=== PATIENT | male | born 1970 | race Caucasian/White ===

== ENCOUNTER 2024-11-08 21:26 | Emergency (ER) | payer BC, SELFPAY ==
[2024-11-08 21:30] VITALS: BP 155/84
[2024-11-08 21:55] LABS: Hematocrit 43.5 % (39.0-52.0); Hemoglobin 14.4 g/dL (13.0-18.0); Mean Corp Hgb Conc. 33.1 g/dL (33.0-37.0); Mean Corpuscular Volume 89.0 fL (80.0-94.0); Nucleated Red Blood Cells % 0 % (-); Platelet Count 260 10^3/uL (130-400); Red Cell Dist. Width 12.8 % (11.5-14.5)
[2024-11-08 22:13] LABS: ALT (SGPT) 64 U/L (0-50); AST (SGOT) 37 U/L (17-59); Albumin 4.6 g/dl (3.5-5.0); Alkaline Phosphatase 54 U/L (38-126); Blood Urea Nitrogen 24 mg/dl (9-20); Calcium 9.1 mg/dl (8.4-10.2); Carbon Dioxide 27 mmol/L (22-30); Chloride 104 mmol/L (98-107); Glucose 122 mg/dl (70-99); Potassium 4.8 mmol/L (3.5-5.1); Sodium 138 mmol/L (135-145); Total Protein 7.7 g/dl (6.3-8.2); eGFR > 60.00
[2024-11-08 22:18] LABS: Troponin I < 0.012 ng/ml
[2024-11-08 22:24] VITALS: BP 110/70
[2024-11-08 23:00] VITALS: BP 113/68
[2024-11-09] VITALS: BP 112/67
--- NOTE | 2024-11-09 00:14 | ED.GENMED ---
History of Present Illness
<Abdirahman Henning MD, Resident - Last Filed: 11/09/24 11:01>
General
Chief Complaint: Dizziness
Source: patient
Exam Limitations: none
Time Seen by Provider: 11/08/24 23:59
History of Present Illness
History of Present Illness:
This is a 54-year-old male with history of GERD presenting in the emergency department with complaints of ' white noise' in both ears and intermittent feeling of lightheadedness. Reports that he recently returned from [place] on October 29 he developed
some respiratory symptoms in our lab when he came to [facility] he went to the urgent care and was prescribed a Medrol Dosepak and Augmentin for 10 days. He completed the Medrol Dosepak however his symptoms are still lingering so he consulted
his family doctor who prescribed another Medrol Dosepak which she is currently on third day. He finished a course of antibiotics. He denies any fevers or chills. Denies any nausea or vomiting. Denies any diarrhea or constipation. He reports
that his respiratory symptoms almost resolved completely.
He reported that before leaving for a line he had a blood work which showed slight elevation of TSH but he was never started on any medications.
Past History
<Abdirahman Henning MD, Resident - Last Filed: 11/09/24 11:01>
Past History
ED Past Medical History: GERD and Other (Duodenal ulcer, gastritis); Negative Asthma, HTN, Hypercholesterolemia or NIDDM
ED Past Surgical History: None
Social History
Tobacco: Non-smoker
Alcohol: None
Drug: None
Personal:
Living: with family
Employment: Employed
Family History
Family History: Other (Noncontributory)
Review of Systems
<Abdirahman Henning MD, Resident - Last Filed: 11/09/24 11:01>
Review of Systems
Allergies reviewed?: Yes
Constitutional: Denies fever or chills
EENT: Reports other (White noise in both ears); Denies sore throat
Respiratory: Denies cough
Cardiac: Denies chest pain or diaphoresis
ABD/GI: Denies abdominal pain, nausea or vomiting
: Denies dysuria
Musculoskeletal: Denies joint pain
Skin: Denies itching
Neurological: Reports dizzy; Denies headache, weakness or numbness
Hematologic/Lymphatic: Denies bleeding
Psychiatric: Denies depression
Phy Exam
<Abdirahman Henning MD, Resident - Last Filed: 11/09/24 11:01>
General Physical Exam
General Presentation: well appearing and no apparent distress
General age: appears stated age
General Skin: warm
General Habitus: normal
General Mental: alert
General Hydration: appears well hydrated
Cardiovascular Exam
Cardiovascular Exam: regular rate/rhythm and no murmur
Pulmonary Exam
Pulmonary Exam: lungs clear, no respiratory distress and no cough
Gastrointestinal Exam
Gastrointestinal Exam: normal bowel sounds, non tender, soft and non distended
Neurological Exam
Neurological Exam: alert, oriented x3, CN II-XII intact, no motor deficits, no sensory deficits and cerebellum intact
Musculoskeletal Exam
Musculoskeletal Exam: full ROM
Psychiatric Exam
Psychiatric Exam: normal mood/affect
Course
<Abdirahman Henning MD, Resident - Last Filed: 11/09/24 11:01>
Orders/Labs/Results
Orders:
Orders
11/08/24 21:33
Electrocardiogram (*1) Urgent
Reason for Study: Vertigo / Dizzy
CR Chest - 2 Views Urgent
Comment:
Reason For Exam: chest pressure, palpitaions
11/08/24 21:34
EKG- Treatment ONCE
11/08/24 21:48
Complete Blood Count/With Diff Urgent
Comprehensive Metabolic Panel Urgent
Troponin I Urgent
11/09/24 00:33
CT Head W/o Iv Contrast Urgent
Comment:
Reason For Exam: dizziness
Abnormal Lab Results
11/08/24
21:48
WBC 15.1 H 10^3/uL
(4.8-10.8)
Abs Immat Gran (auto) 0.2 H 10^3/uL
(0-0.05)
Absolute Neuts (auto) 10.9 H 10^3/uL
(1.4-6.5)
Absolute Monos (auto) 1.2 H 10^3/uL
(0.1-0.6)
Immature Gran % 1.6 H %
(0-0.5)
Lymphocytes % 16.9 L %
(20.5-51.1)
BUN 24 H mg/dl
(9-20)
Glucose 122 H mg/dl
(70-99)
ALT 64 H U/L
(0-50)
11/08/24 21:48
11/08/24 21:48
Vital Signs
Initial and Last Documented VS:
Initial Vital Signs
Temp Pulse Resp BP Pulse Ox
98.4 F 85 16 155/84 98
11/08/24 21:30 11/08/24 21:30 11/08/24 21:30 11/08/24 21:30 11/08/24 21:30
Last Documented Vital Signs
Temp Pulse Resp BP Pulse Ox
98.4 F 69 17 107/70 96
11/08/24 21:30 11/09/24 02:04 11/08/24 23:15 11/09/24 02:03 11/09/24 02:04
<Anuel Chua, DO - Last Filed: 11/09/24 01:59>
Orders/Labs/Results
Orders:
Orders
11/08/24 21:33
Electrocardiogram (*1) Urgent
Reason for Study: Vertigo / Dizzy
CR Chest - 2 Views Urgent
Comment:
Reason For Exam: chest pressure, palpitaions
11/08/24 21:34
EKG- Treatment ONCE
11/08/24 21:48
Complete Blood Count/With Diff Urgent
Comprehensive Metabolic Panel Urgent
Troponin I Urgent
11/09/24 00:33
CT Head W/o Iv Contrast Urgent
Comment:
Reason For Exam: dizziness
Abnormal Lab Results
11/08/24
21:48
WBC 15.1 H 10^3/uL
(4.8-10.8)
Abs Immat Gran (auto) 0.2 H 10^3/uL
(0-0.05)
Absolute Neuts (auto) 10.9 H 10^3/uL
(1.4-6.5)
Absolute Monos (auto) 1.2 H 10^3/uL
(0.1-0.6)
Immature Gran % 1.6 H %
(0-0.5)
Lymphocytes % 16.9 L %
(20.5-51.1)
BUN 24 H mg/dl
(9-20)
Glucose 122 H mg/dl
(70-99)
ALT 64 H U/L
(0-50)
11/08/24 21:48
11/08/24 21:48
Vital Signs
Initial and Last Documented VS:
Initial Vital Signs
Temp Pulse Resp BP Pulse Ox
98.4 F 85 16 155/84 98
11/08/24 21:30 11/08/24 21:30 11/08/24 21:30 11/08/24 21:30 11/08/24 21:30
Last Documented Vital Signs
Temp Pulse Resp BP Pulse Ox
98.4 F 69 17 107/70 96
11/08/24 21:30 11/09/24 02:04 11/08/24 23:15 11/09/24 02:03 11/09/24 02:04
<Abdirahman Henning MD, Resident - Last Filed: 11/09/24 11:01>
MDM/Problems Addressed
Differential Diagnosis Includes:
Postviral syndrome vs medication side effect vs unlikely intracranial pathology
MDM/Problems Addressed:
CBC with mild elevation of WBC likely due to his current steroid use.
CMP with mild elevation of BUN, mild elevation of blood glucose, slight elevation of ALT to 64. Serum troponin undetectable.
Chest x-ray with no acute cardiopulmonary process
EKG with normal sinus rhythm.
Patient updated on above results.
Check CT head without contrast- negative
<Abdirahman Henning MD, Resident - Last Filed: 11/09/24 11:01>
*Pulse Oximetry
SaO2: 97
Oxygen Mode of Delivery: Room air
Patient hypoxic: no
*Critical Care Note
Total Time (30-74mins, 75-104mins- exclusive of procedures): Not Applicable
ED Attending Note
<Abdirahman Henning MD, Resident - Last Filed: 11/09/24 11:01>
-
Portions of this chart may have been created with voice recognition software.� Occasional wrong word or��sound alike� substitutions may have occurred due to the inherent limitations of voice recognition software.
<Anuel Chua, DO - Last Filed: 11/09/24 01:59>
ED Attending Note
Patient seen and examined by attending physician: Yes
I performed a history and physical exam of patient and discussed management with resident, I reviewed resident's note and agree with documented findings and plan of care.: Yes
ED Attending Note:
I have seen and evaluated the patient with a [id number] encounter. I have spoken to the resident and involved in the medical history, the physical exam, medical decision making.
Evaluation and management service: agree unless noted differently below.
Results interpretation: agree unless noted differently below.
Focused HPI: 54-year-old male presenting for evaluation of palpitations and feeling foggy. This has been ongoing for the past several weeks. He started to feel unwell when he was in [place]. When he returned, he developed a bronchitis-like
picture. He was prescribed Augmentin and steroids. It did seem to help. Due to persistent cough and wheeze, PCP did extend the steroids which had seemed to help. He has been using Debrox for cerumen impaction as well. However, patient states he
still feels 'off'
Physical exam: Sitting bed comfortably. Heart regular rate and rhythm. Normal finger-nose bilaterally. TMs clear. Negative Nokomis-Hallpike.
Medical Decision Making: Given persistent symptoms, will obtain CT head. Blood work without significant abnormalities. Leukocytosis likely related to recent steroid use. Chest x-ray clear. No cerebellar signs. Given his palpitations, discussed
outpatient Holter monitor
Discharge Plan
Departure
Patient Disposition: Home (Routine Discharge)
Date of Disposition: 11/09/24
Time of Disposition: 01:58
Patient with high blood pressure during this ER visit?: Yes
Condition: Good
Discharge Problem:
Dizziness
Instructions: Dizziness, Nonvertigo, (DC), BLOOD PRESSURE
Prescriptions:
No Action
amoxicillin-pot clavulanate 1 TABLET tablet
1 tab PO Q12 Qty: 20 0RF
Referrals:
Zafar Acuña MD [Family Provider, Family Practice] - Follow up in 1 week
Activity Restrictions/Additional Instructions:
You were seen in [facility] emergency department with concerns of 'white noise' in both ears and dizziness. During your stay at the emergency department you had blood work which included complete blood count which showed slight elevation
of WBCs likely due to your current steroid use. Complete metabolic panel with slight elevation of BUN, slight elevation of blood glucose, borderline elevation of ALT. We also performed chest x-ray which did not show any cardiopulmonary process.
EKG was also done which showed normal sinus rhythm. Physical exam did not reveal any abnormal findings.
Interventions
Interventions:
*Risk Screen - Suicide Last Done: 11/08/24 23:21
*General Assessment Last Done: 11/08/24 23:21
*Neglect/Abuse Screening Last Done: 11/08/24 23:21
*ED- Fall Risk Assessment Last Done: 11/08/24 23:21
*ED COVID-19 Vaccine History Last Done: 11/08/24 23:21
*Nursing Disposition Last Done: 11/09/24 02:20
ED- Neurological Assessment Last Done: 11/08/24 23:25
ED- Cardiac Assessment Last Done: 11/08/24 23:26
ED Swallowing Screen Last Done: 11/08/24 23:25
Discharge Date and Time
Discharge Date/Time: 11/09/24 02:22
Print Language: GERMAN
[2024-11-09 01:00] VITALS: BP 116/75
[2024-11-09 02:03] VITALS: BP 107/70
== END 2024-11-09 02:22 | disposition home or self-care (01) ==
LOC: EMR 21:26
PROVIDERS: EMERGENCY PHYSICIAN Student in an Organized Health Care Education/Training Program; FAMILY PHYSICIAN Family Medicine
DX: R42 Dizziness and giddiness (principal); K21.9 Gastro-esophageal reflux disease without esophagitis; E11.9 Type 2 diabetes mellitus without complications; I10 Essential (primary) hypertension; Z87.19 Personal history of other diseases of the digestive system
CPT/HCPCS: 99284; 70450; 71046; 80053; 84484; 85025; 93005

== ENCOUNTER 2025-03-23 23:33 | Emergency (ER) | payer BC, SELFPAY ==
[2025-03-23 23:37] VITALS: BP 120/70
[2025-03-24 01:21] VITALS: BP 117/72
--- NOTE | 2025-03-24 01:51 | ED.GENMED ---
History of Present Illness
General
Chief Complaint: Back Pain
Source: patient
Exam Limitations: none
Time Seen by Provider: 03/24/25 01:39
Nursing documentation reviewed up to this point in time: agreed with
History of Present Illness
History of Present Illness:
Note:
CHIEF COMPLAINT(S)
Low back pain following lifting activity.
HISTORY OF PRESENT ILLNESS
The patient is a 54-year-old male with pmh of GERd presenting with complaints of low back pain. The pain began a few weeks ago and was associated with lifting objects, but has recently intensified and persists without relief after he lifted a pole
and twisted his back. The patient noted a specific exacerbation of the pain after lifting a metal pole at work, describing it as a sharp pain across the lower back. The pain does not radiate to the legs, and there is no associated numbness or
tingling. The patient denies any hematuria, reducing the suspicion for renal pathologies like kidney stones. Relief was previously found by placing a rolled-up towel under the back while lying down. The patient reports difficulty with movements
involving bending, reaching, and getting into a car. He indicates that the pain is across the lower back, not localized or radiating, and it is most pronounced when pressure is applied to the paraspinal musculature. The patient notes a history of
similar episodes in the past for which orthopedic evaluation was sought, and spinal injections were done but none recently. He denies fevers, chills, chest pain, shortness of breath, urinary or fecal incontinence.
PAST MEDICAL AND SURGICAL HISTORY
The patient recalls seeing an orthopedist for prior similar episodes of back pain.
REVIEW OF SYSTEMS
- Musculoskeletal: Reports low back pain exacerbated by movement and bending. No radiation to legs, numbness, or tingling reported.
- Genitourinary: Denies hematuria or changes in urinary patterns.
PHYSICAL EXAM
General: Alert, no acute distress.
Skin: Warm, dry.
Head: Normocephalic, atraumatic.
Neck: Supple, trachea midline.
Eye Ears, nose, mouth and throat: Oral mucosa moist.
Cardiovascular: Normal peripheral perfusion, No edema.
Respiratory: Respirations are non-labored.
Gastrointestinal : Abdomen nondistended. No pulsatile abdominal mass.
Back: Tenderness upon palpation noted in the lumbar paraspinal muscles, otherwise normal alignment.
Musculoskeletal: Normal ROM, normal strength, pain elicited with pressure applied to paraspinal musculature.
Neurological: Alert and oriented to person, place, time, and situation, No focal neurological deficit observed.
Psychiatric: Cooperative, appropriate mood & affect.
PLAN
1. Administer Toradol injection for acute pain relief.
2. Obtain lumbar spine X-ray to evaluate for potential arthritis or other bony causes.
3. Initiate a short course of oral steroids to reduce inflammation.
4. Refer to orthopedics for further evaluation and management, including consideration of more advanced imaging if warranted.
5. Educate the patient about signs that would necessitate earlier re-evaluation, such as the development of leg weakness or sensory changes.
DIFFERENTIAL DIAGNOSIS
The Differential Diagnosis includes, in no particular order and is not limited to:
1. Lumbar muscle strain
2. Herniated intervertebral disc
3. Lumbar spondylosis
4. Facet joint syndrome
5. Sacroiliitis
6. Ankylosing spondylitis
7. Vertebral compression fracture
8. Spinal stenosis
9. Osteoporosis-related insufficiency fracture
10. Pyelonephritis (less likely due to lack of urinary symptoms)
Disposition:
SUMMARY OF ENCOUNTER
The patient is a 54-year-old male with a past medical history of GERD presenting to the emergency department with low back pain. The pain intensified after a twisting motion while lifting a pole at work. The pain does not radiate to the extremities,
and there are no concerning symptoms like fever, bowel or bladder dysfunction, or ambulatory issues. On examination, the patient appeared well and in no acute distress. There was minimal tenderness in the paralumbar region, a negative straight leg
raise, no pulsatile abdominal mass, and no tenderness upon abdominal palpation. Suspected causes include a muscle sprain or osteoarthritis. An X-ray was performed, revealing mild degenerative disc disease at L2-L3 and L4-L5 with no evidence of
osteoarthritis.
DISPOSITION
Discharge
ASSESSMENT
Suspected muscle sprain versus osteoarthritis with underlying mild degenerative disc disease.
EMERGENCY TREATMENTS ADMINISTERED
The patient received an intramuscular dose of ketorolac in the emergency department, which provided symptomatic relief.
PLAN
1. Prescribe a medrol dose pack (methylprednisolone) for anti-inflammatory treatment while advising the patient to avoid NSAIDs during steroid use.
2. Arrange follow-up with orthopedics for further evaluation and management.
INDEPENDENT REVIEW OF LABS AND INTERPRETATION OF TESTS
- My independent interpretation of the lumbar spine X-ray shows mild degenerative disc disease at L2-L3 and L4-L5, with no evidence of osteoarthritis.
MEDICATION RECONCILIATION
- Administered: Ketorolac (intramuscular dose provided in the ER).
- Prescribed: Methylprednisolone (medrol dose pack).
MEDICAL DECISION MAKING
1. Number and Complexity of Problems Addressed: Chronic conditions affecting care [GERD]
Differential Diagnosis:
- Lumbar muscle strain
- Herniated intervertebral disc
- Lumbar spondylosis
- Facet joint syndrome
- Sacroiliitis
- Ankylosing spondylitis
- Vertebral compression fracture
- Spinal stenosis
- Osteoporosis-related insufficiency fracture
- Pyelonephritis
2. Data:
Category 1:
- My independent interpretation of lumbar spine X-ray revealing mild degenerative disc disease.
3. Risk:
- Prescription medication was prescribed: Methylprednisolone.
DIAGNOSIS
- Low back pain (M54.5)
- Degenerative disc disease, lumbar region (M51.36)
Past History
Past History
ED Past Medical History: GERD and Other (Duodenal ulcer, gastritis); Negative Asthma, HTN, Hypercholesterolemia or NIDDM
ED Past Surgical History: None
Social History
Tobacco: Non-smoker
Alcohol: None
Drug: None
Personal:
Living: with family
Employment: Employed
Family History
Family History: Other (Noncontributory)
Review of Systems
Review of Systems
All Other Systems: ROS reviewed and negative except as documented in HPI and ROS
Phy Exam
Physical Exam
Physical Exam:
see hpi
Course
Orders/Labs/Results
Orders:
Orders
03/24/25 02:07
Ketorolac [Toradol] 30 mg IM NOW STA
CR Lumbar Spine 2 Or 3 Views Urgent
Comment:
Reason For Exam: low back pain
Vital Signs
Initial and Last Documented VS:
Initial Vital Signs
Temp Pulse Resp BP Pulse Ox
97.7 F 71 20 120/70 98
03/23/25 23:37 03/23/25 23:37 03/23/25 23:37 03/23/25 23:37 03/23/25 23:37
Last Documented Vital Signs
Temp Pulse Resp BP Pulse Ox
97.7 F 71 20 97/67 97
03/23/25 23:37 03/23/25 23:37 03/23/25 23:37 03/24/25 03:00 03/24/25 03:45
*Pulse Oximetry
SaO2: 95
Oxygen Mode of Delivery: Room air
Patient hypoxic: no
*Critical Care Note
Total Time (30-74mins, 75-104mins- exclusive of procedures): Not Applicable
ED Attending Note
-
Portions of this chart may have been created with voice recognition software.� Occasional wrong word or��sound alike� substitutions may have occurred due to the inherent limitations of voice recognition software.
Discharge Plan
Departure
Patient Disposition: Home (Routine Discharge)
Date of Disposition: 03/24/25
Time of Disposition: 03:34
Patient with high blood pressure during this ER visit?: Yes
Condition: Good
Discharge Problem:
Back sprain
Instructions: Low Back Pain (DC), BLOOD PRESSURE
Prescriptions:
New
methylprednisolone [Medrol (Joshua)] 4 mg tablets,dose pack
See Rx Instructions .ROUTE .COMPLEX Qty: 21 0RF
Rx Instructions:
orally per package directions
No Action
amoxicillin-pot clavulanate 1 TABLET tablet
1 tab PO Q12 Qty: 20 0RF
Referrals:
Zafar Acuña MD [Family Provider, Family Practice]
Dwayne Dick MD [Active, Orthopedics] - Call in 1-3 days for appt
Stand Alone Forms: Return to Work
Activity Restrictions/Additional Instructions:
Medrol dose pack has been sent to your pharmacy. Please follow package instructions for dosing. Please do not take NSAIDs (including aleve) while taking this medication. You can also take Tylenol with this.
Please call the attached number to schedule follow up with orthopedics.
PLEASE RETURN TO ER SHOULD YOU DEVELOP INABILITY AMBULATE, LOSS OF SENSATION IN THE GENITAL REGION, WEAKNESS IN EXTREMITIES, FEVERS OR CHILLS, OR ANY OTHER SIGNS OR SYMPTOMS WORRISOME TO YOU.
Interventions
Interventions:
*Risk Screen - Suicide Last Done: 03/23/25 23:37
*General Assessment Last Done: 03/23/25 23:37
*Neglect/Abuse Screening Last Done: 03/23/25 23:37
*ED- Fall Risk Assessment Last Done: 03/23/25 23:37
*ED COVID-19 Vaccine History Last Done: 03/23/25 23:37
*ED Influenza Vaccine History Last Done: 03/23/25 23:37
*Nursing Disposition Last Done: 03/24/25 04:05
ED-Musculoskeletal Assessment Last Done: 03/24/25 01:27
Discharge Date and Time
Discharge Date/Time: 03/24/25 04:05
Print Language: NIUEAN
[2025-03-24 02:00] VITALS: BP 121/74
[2025-03-24] MEDS: TORADOL 30 MG IM (02:41)
[2025-03-24 02:43] VITALS: BP 109/74
[2025-03-24 03:00] VITALS: BP 97/67
== END 2025-03-24 04:05 | disposition home or self-care (01) ==
LOC: EMR 23:33
PROVIDERS: EMERGENCY PHYSICIAN Student in an Organized Health Care Education/Training Program; FAMILY PHYSICIAN Family Medicine
DX: S33.5XXA Sprain of ligaments of lumbar spine, initial encounter (principal); X50.0XXA Overexertion from strenuous movement or load, initial encounter; Y99.0 Civilian activity done for income or pay; R03.0 Elevated blood-pressure reading, without diagnosis of hypertension; K21.9 Gastro-esophageal reflux disease without esophagitis
CPT/HCPCS: 99284; 96372; 72100